=== PATIENT | female | born 1990 | race Caucasian/White ===

== ENCOUNTER 2016-11-27 13:42 | Emergency (ER) | payer OTHER ==
[~2016-11-27] VITALS: Ht 154.9 cm; Wt 92.0 kg
[~2016-11-27 13:42] MED LIST: AZIT250T94 PO; BENA1TAB14 PO; IBUP-1542 PO; PROM6.25 PO
[2016-11-27 13:44] VITALS: Ht 154.9 cm; Wt 92.0 kg
[2016-11-27] MEDS ORDERED: SOD CHLORIDE 0.9% 1,000 ML IV STA ×2 (14:13→16:59)
[2016-11-27] MEDS ORDERED: ONDANSETRON 4 MG INJ IV STA (14:13)
[2016-11-27] MEDS ORDERED: morphine 4 MG/ML VIAL IV STA (14:13)
[2016-11-27] MEDS ORDERED: FAMOTIDINE 20 MG INJ IV STA (14:13)
[2016-11-27] MEDS ORDERED: LISI1TAB8 PO (14:32)
[2016-11-27] MEDS ORDERED: ALBU18HF INHALATION (14:32)
[2016-11-27 14:55] LABS: BASOPHILS % 0.1 % (0.0-2.0); EOSINOPHILS # 0.1 10^3/ul (0.0-0.5); EOSINOPHILS % 1.7 % (0.0-7.0); HEMATOCRIT 37.4 % (37.0-47.0); HEMOGLOBIN 11.9 g/dl (12.0-16.0); LYMPHOCYTES # 1.9 10^3/ul (0.8-2.9); LYMPHOCYTES % 26.7 % (15.0-51.0); MEAN CORPUSCULAR HEMOGLOBIN 23.7 pg (29.0-33.0); MEAN CORPUSCULAR HGB CONC 31.8 g/dl (32.0-37.0); MEAN CORPUSCULAR VOLUME 74.4 fl (82.0-101.0); MONOCYTE # 0.4 10^3/ul (0.3-0.9); MONOCYTES % 5.8 % (0.0-11.0); NEUTROPHIL # 4.6 10^3/ul (1.6-7.5); NEUTROPHILS % 65.4 % (39.0-77.0); PLATELET COUNT 356 10^3/UL (140-415); RED BLOOD COUNT 5.03 10^6/ul (4.20-5.40); RED CELL DISTRIBUTION WIDTH 15.3 % (11.5-14.5)
[2016-11-27 15:09] LABS: ADD UMIC YES; UR ASCORBIC ACID NEGATIVE (NEGATIVE); UR BILIRUBIN (Dip) 1+ mg/dL (NEGATIVE); UR BLOOD (Dip) 1+ mg/dL (NEGATIVE); UR CLARITY CLOUDY (CLEAR); UR COLOR AMBER (YELLOW); UR GLUCOSE (Dip) NEGATIVE (NEGATIVE); UR KETONES (Dip) TRACE mg/dL (NEGATIVE); UR LEUKOCYTE ESTERASE (Dip) NEGATIVE Leu/ul (NEGATIVE); UR MUCUS MANY /HPF (NONE SEEN); UR NITRITE (Dip) NEGATIVE (NEGATIVE); UR RBC 8 /HPF (0-5); UR SPECIFIC GRAVITY (Dip) 1.041 (1.003-1.030); UR SQUAMOUS EPITHELIAL CELL FEW /HPF (FEW); UR TOTAL PROTEIN (Dip) 1+ mg/dl (NEGATIVE); UR UROBILINOGEN (Dip) 1+ mg/dL (NEGATIVE)
[2016-11-27 15:19] LABS: ALANINE AMINOTRANSFERASE 27 IU/L (13-69); ALBUMIN 4.6 g/dl (3.3-4.9); ALBUMIN/GLOBULIN RATIO 1.48; ALKALINE PHOSPHATASE 127 IU/L (42-121); ANION GAP 15 (8-16); ASPARTATE AMINO TRANSFERASE 21 IU/L (15-46); BLOOD UREA NITROGEN 17 mg/dl (7-20); CALCIUM 9.3 mg/dl (8.4-10.2); CARBON DIOXIDE 25 mmol/L (21-31); CHLORIDE 105 mmol/L (97-110); CREATININE 0.69 mg/dl (0.44-1.00); GLUCOSE 136 mg/dl (70-220); POTASSIUM 3.5 mmol/L (3.5-5.1); SODIUM 141 mmol/L (135-144); TOTAL PROTEIN 7.7 g/dl (6.1-8.1)
[2016-11-27 15:20] LABS: INR 0.99; PROTIME 13.1 Sec (12.2-14.2)
[2016-11-27 15:21] LABS: PARTIAL THROMBOPLASTIN TIME 27.6 Sec (25.0-35.0)
[2016-11-27] MEDS ORDERED: HYDROmorphONE 1 MG/ML SYG IV STA ×2 (15:27→15:54)
[2016-11-27] MEDS ORDERED: hydrALAzine 20 MG INJ IV ONE (15:30)
[2016-11-27 15:31] LABS: TROPONIN-I < 0.012 ng/ml (0.00-0.12)
--- NOTE | 2016-11-27 15:35 | RADRPT ---
PROCEDURE: XR Lumbar Spine. CLINICAL INDICATION: Trauma due to a fall. Back pain. TECHNIQUE: Three views. AP, lateral and cone-down lateral view of the lumbar spine were obtained. COMPARISON: No prior studies are available for comparison. FINDINGS: There is normal stature and alignment of the vertebrae. There is no fracture. There is no lytic or blastic lesion. The disk height is normal. Surgical clips are present in the right upper quadrant of the abdomen. The paravertebral soft tissu es are otherwise unremarkable. IMPRESSION: 1. Prior right upper quadrant abdomen surgery. 2. Otherwise unremarkable images of the lumbar spine. RPTAT: QQ .Zaid Singleton MD, MD Date Time Electronically viewed and signed by .Zaid Singleton MD, on 11/27/2016 15:35 .R/
[2016-11-27] MEDS ORDERED: IOHEXOL 100 ML ONE (15:47)
[2016-11-27] MEDS ORDERED: SOD CHLORIDE 0.9% 100 ML ONE (15:48)
[2016-11-27] MEDS ORDERED: IOHEXOL 350MG/ML 50 ML BTL ONE (15:49)
--- NOTE | 2016-11-27 16:53 | RADRPT ---
PROCEDURE: CT angiogram chest, abdomen, and pelvis. CLINICAL INDICATION: Chest pain. Concern for dissection. TECHNIQUE: CT angiogram of the thoracic and abdominal aorta was acquired in the early angiographic phase after the uneventful administration of 100 ml Omnipaque 350. One or more of the following do se reduction techniques were used: Automated exposure control, adjustment of the mA and/or kV accor ding to patient size, use of iterative reconstruction technique. The total exam CTDI = 2.8, 28.2, 2 0.1 mGy and the DLP equals 1376.75 mGy-cm. COMPARISON: None available FINDINGS: Vascular: Pulmonary arteries: No filling defect is seen within the pulmonary arteries to suggest pulmonary emb olism. Thoracic aorta: Evaluation of the aortic root is limited secondary to cardiac motion artifact. Connor ssly, there is no evidence of dissection or aneurysm. Abdominal aorta: Normal in caliber. No evidence of dissection. The celiac, superior mesenteric, inferior mesenteric arteries: Patent without stenosis. Renal arteries: Widely patent renal arteries bilaterally. Two accessory left renal arteries are not ed. Incidentally noted, there is a retroaortic left renal vein. Large collateral seen: None. Chest: The lungs are clear. No focal opacification, effusion, pneumothorax, edema, or nodules are seen. M inimal scarring only is seen in the lung bases bilaterally. There is no acute infiltrate. The medi astinum is unremarkable without evidence for mass or lymphadenopathy. The heart size is normal wi thout evidence for pericardial thickening or effusion. The axillary regions, subpectoral regions, and supraclavicular regions are all unremarkable. Imagin g obtained through the upper abdomen reveals no acute abnormality. The surrounding osseous structur es are unremarkable. No osteolytic or osteoblastic lesion is detected. Abdomen: Liver is normal in size and attenuation without focal lesion on this angiographic phase. Spleen is normal in size. The gallbladder surgically absent. There is likely compensatory mild prominence of the common bile duct. Pancreas and adrenal glands are unremarkable. Kidneys show cortical medullary differentiation. Ther e is no hydronephrosis. No calculi are seen. There is a moderate fluid-filled distension of the stomach. Otherwise, there is no dilated bowel. The appendix is normal. There is no fluid or thickening of the small bowel mesentery. No retroperi toneal mass or lymphadenopathy. The amor hepatis region is clear. No fluid collection is identifie d. A small posterior disk osteophyte complex is present at T12-L1 without significant central canal stenosis. Pelvis: Pelvic organs are unremarkable. The pelvic sidewalls and inguinal regions are clear. No free fluid is seen. IMPRESSION: 1. Unremarkable aorta without evidence of dissection or aneurysm. 2. No evidence of pulmonary artery filling defect to suggest pulmonary embolism. 3. Status post cholecystectomy with likely compensatory prominence of the CBD. 4. Moderately distended fluid-filled stomach. RPTAT: JJ .Socrates Carlton MD, MD Date Time Electronically viewed and signed by .Socrates Carlton MD, MD on 11/27/2016 16:52 .A/
[2016-11-27] MEDS ORDERED: DIAZEPAM 5 MG/ML SYG IV ONE (17:00)
[2016-11-27] MEDS ORDERED: METOCLOPRAMIDE 10 MG INJ IV ONE (17:00)
[2016-11-27] MEDS ORDERED: CEFTRIAXONE 1 GM/50 ML (PMX) 50 ML IVPB ONE (17:00)
--- NOTE | 2016-11-27 17:39 | ERD ---
ER Documentation Chief Complaint Date/Time DATE: 11/27/16 TIME: 17:35 Chief Complaint Complains of severe back pain after a fall HPI This is a 26-year-old female who presents to the emergency room for evaluation of lower back pain. The patient does state that approximately 3 days ago she was in the shower she slipped and fell backwards and hit her back. She denies any head injury or loss of consciousness. The patient states that she went to to other hospitals" they did not do anything for her ankle. She states that she came to the emergency room today for evaluation. The patient denies having received any type of imaging studies at either hospital. She denies any fevers associated with this and does state that she has mild painful urination ROS All systems reviewed and are negative except as per history of present illness. Medications Home Meds Reported Medications Albuterol Sulfate* (Ventolin HFA*) 18 Gm Hfa.aer.ad, 2 PUFF INHALATION Q6H, #1 INHALER 11/27/16 Lisinopril/Hydrochlorothiazide (Lisinopril-Hctz 20-25 mg Tab) 1 Each Tablet, 1 EACH PO DAILY, TAB 11/27/16 Discontinued Scripts Benazepril-Hydrochlorothiazide (Benazepril-Hydrochlorothiazide) 20-25 Mg Tablet , 1 TAB PO DAILY, #30 TAB Prov:MEY LOPEZ MD 07/25/15 Ibuprofen* (Motrin*) 600 Mg Tab, 600 MG PO Q6H Y for PAIN, #14 TAB Prov:MEY LOPEZ MD 07/25/15 Promethazine w/Codeine* (Phenergan w/Codeine* Syrup) 5 Ml Syrup, 5 ML PO Q4H Y for COUGH for 5 Days, ML Prov:MEY LOPEZ MD 07/25/15 Azithromycin* (Zithromax*) 250 Mg Tablet, 250 MG PO .MistyPACK DIRECTED, #6 TAB TAKE 500 MG (2 TABS) THE FIRST DAY THEN 250 MG (1 TAB) DAYS 2-5 Prov:MEY LOPEZ MD 07/25/15 Allergies Allergies: Coded Allergies: No Known Allergy (Verified , NONE, 11/27/16) PMhx/Soc History of Surgery: Yes ( x 3) Anesthesia Reaction: No Hx Neurological Disorder: No Hx Respiratory Disorders: Yes (ASTHMA) Hx Cardiac Disorders: Yes (HTN) Hx Psychiatric Problems: No Hx Miscellaneous Medical Probl: Yes (Overian cysts) Hx Alcohol Use: No Hx Substance Use: No Hx Tobacco Use: No Smoking Status: Never smoker Physical Exam Vitals Vital Signs Date Time Temp Pulse Resp B/P Pulse Ox O2 Delivery O2 Flow Rate FiO2 11/27/16 15:51 100 20 154/104 100 Room Air 11/27/16 13:44 98.3 92 20 232/128 97 Physical Exam INITIAL VITAL SIGNS: Reviewed by me GENERAL: The patient is well developed and appropriate for usual state of health in no apparent distress HEENT: Pupils equal, round, and reactive to light. EOMI. There is no scleral icterus. NECK: C-spine is soft and supple, there is no meningismus. There is no cervical lymphadenopathy. LUNGS: Clear to auscultation bilaterally. There are no rales, wheezes or rhonchi. HEART: Regular rate and rhythm, no murmurs, clicks, rubs or gallops. ABDOMEN: Bilateral CVAT, there soft, non-tender, non-distended. There are bowel sounds in all four quadrants. No rebound or guarding. EXTREMITIES: There is no peripheral cyanosis or edema. No focal swelling or erythema. NEUROLOGICAL: The patient moves all four extremities with 5/5 strength. Cranial nerves II - XII are intact. Normal gait. Alert and oriented SKIN: There is no apparent rash or petechiae. HEME/LYMPHATIC: There is no evidence of excessive bruising or lymphedema. PSYCHIATRIC: The patient does not appear anxious or depressed. Result Diagram: 11/27/16 1440 11/27/16 1440 Results 24 hrs Laboratory Tests Test 11/27/16 14:40 White Blood Count 7.010^3/ul Red Blood Count 5.0310^6/ul Hemoglobin 11.9g/dl Hematocrit 37.4% Mean Corpuscular Volume 74.4fl Mean Corpuscular Hemoglobin 23.7pg Mean Corpuscular Hemoglobin Concent 31.8g/dl Red Cell Distribution Width 15.3% Platelet Count 45305^3/UL Mean Platelet Volume 10.0fl Neutrophils % 65.4% Lymphocytes % 26.7% Monocytes % 5.8% Eosinophils % 1.7% Basophils % 0.1% Nucleated Red Blood Cells % 0.0/100WBC Neutrophils # 4.610^3/ul Lymphocytes # 1.910^3/ul Monocytes # 0.410^3/ul Eosinophils # 0.110^3/ul Basophils # 0.010^3/ul Nucleated Red Blood Cells # 0.010^3/ul Prothrombin Time 13.1Sec Prothrombin Time Ratio 1.0 INR International Normalized Ratio 0.99 Activated Partial Thromboplast Time 27.6Sec Urine Color SAMIR Urine Clarity CLOUDY Urine pH 5.0 Urine Specific [place] 1.041 Urine Ketones TRACEmg/dL Urine Nitrite NEGATIVEmg/dL Urine Bilirubin 1+mg/dL Urine Urobilinogen 1+mg/dL Urine Leukocyte Esterase NEGATIVELeu/ul Urine Microscopic RBC 8/HPF Urine Microscopic WBC 3/HPF Urine Squamous Epithelial Cells FEW/HPF Urine Calcium Oxalate Crystals MANY/HPF Urine Mucus MANY/HPF Urine Hemoglobin 1+mg/dL Urine Glucose NEGATIVEmg/dL Urine Total Protein 1+mg/dl Urine Test NEGATIVE Sodium Level 141mmol/L Potassium Level 3.5mmol/L Chloride Level 105mmol/L Carbon Dioxide Level 25mmol/L Anion Gap 15 Blood Urea Nitrogen 17mg/dl Creatinine 0.69mg/dl Glucose Level 136mg/dl Calcium Level 9.3mg/dl Total Bilirubin 0.0mg/dl Direct Bilirubin 0.00mg/dl Indirect Bilirubin 0.0mg/dl Aspartate Amino Transf (AST/SGOT) 21IU/L Alanine Aminotransferase (ALT/SGPT) 27IU/L Alkaline Phosphatase 127IU/L Troponin I < 0.012ng/ml Total Protein 7.7g/dl Albumin 4.6g/dl Globulin 3.10g/dl Albumin/Globulin Ratio 1.48 Lipase 50U/L Current Medications Medications (Trade) Dose Ordered Sig/Regla Route PRN Reason Start Time Stop Time Status Last Admin Dose Admin Sodium Chloride (NS) 1,000 ml @ 1,000 mls/hr Q1H STAT IV 11/27/16 14:13 11/27/16 15:22 DC 11/27/16 14:51 Morphine Sulfate (morphine) 4 mg ONCE STAT IV 11/27/16 14:13 11/27/16 14:16 DC 11/27/16 14:51 Ondansetron HCl (Zofran Inj) 4 mg ONCE STAT IV 11/27/16 14:13 11/27/16 14:16 DC 11/27/16 14:51 Famotidine (Pepcid Iv) 20 mg ONCE STAT IV 11/27/16 14:13 11/27/16 14:16 DC 11/27/16 14:51 Hydralazine HCl (Apresoline) 10 mg ONCE ONCE IV 11/27/16 15:30 11/27/16 15:32 DC 11/27/16 15:34 Hydromorphone HCl (Dilaudid) 0.5 mg ONCE STAT IV 11/27/16 15:27 11/27/16 15:28 DC 11/27/16 15:35 IV Flush 10 ml 10 ml STK-MED ONCE .ROUTE 11/27/16 15:47 11/27/16 15:48 DC 11/27/16 16:17 Iohexol 100 ml @ ud STK-MED ONCE .ROUTE 11/27/16 15:47 11/27/16 15:48 DC 11/27/16 16:17 Sodium Chloride (NS) 100 ml @ ud STK-MED ONCE .ROUTE 11/27/16 15:48 11/27/16 15:49 DC 11/27/16 16:17 Iohexol (Omnipaque 350mg/ ml) 50 ml STK-MED ONCE .ROUTE 11/27/16 15:49 11/27/16 15:50 DC 11/27/16 16:17 Hydromorphone HCl (Dilaudid) 1 mg ONCE STAT IV 11/27/16 15:54 11/27/16 15:55 DC 11/27/16 15:58 Metoclopramide HCl (Reglan) 10 mg ONCE ONCE IV 11/27/16 17:00 11/27/16 17:03 DC 11/27/16 17:11 Diazepam 5 mg 5 mg ONCE ONCE IV 11/27/16 17:00 11/27/16 17:03 DC 11/27/16 17:11 Sodium Chloride 1,000 ml @ 1,000 mls/hr Q1H STAT IV 11/27/16 16:59 11/27/16 17:58 11/27/16 17:11 Ceftriaxone Sodium (Rocephin) 50 ml @ 100 mls/hr ONCE ONCE IVPB 11/27/16 17:00 11/27/16 17:29 DC 11/27/16 17:11 Procedures/MDM EKG: Rate/Rhythm: [Normal Sinus Rhythm] QRS, ST, T-waves: [No changes consistent w/ acute ischemia] Impression: [No evidence of ischemia or arrhythmia] X-ray LS-Spine 3V Interpreted by me: Bones: [No fracture] Joints: [No dislocation] Foreign body: [None] CTA chest abdomen pelvis: 1. Unremarkable aorta without evidence of dissection or aneurysm. 2. No evidence of pulmonary artery filling defect to suggest pulmonary embolism. 3. Status post cholecystectomy with likely compensatory prominence of the CBD. 4. Moderately distended fluid-filled stomach. This 26-year-old female presents to the emergency room for lower back pain. When I evaluated her the patient did have bilateral CVAT. Lab work was obtained which is within normal limits. The patient's urine does show small amount of blood. Urine culture was obtained. Of concern was suspicious blood pressure of 232/1 58. I did give this patient hydralazine with moderate reduction in her blood pressure. She is complaining of severe back pain was given morphine without resolution of pain. She was then given Dilaudid without resolution of pain. CTA of the chest abdomen pelvis was obtained to rule out any aortic dissection. CTA of the chest abdomen pelvis does not reveal any acute intra-abdominal pathology. This patient was then given Valium. The patient did have resolution of her pain and is sleeping comfortably at this time. This patient will be discharged home at this time with a prescription for Valium, and I feel the likely cause of her back pain is secondary to lower back contusion from the fall. The patient was advised to follow with her primary care physician for evaluation of hypertension as well. Departure Diagnosis: Primary Impression: Contusion of lower back Additional Impression: Uncontrolled hypertension Condition: Stable MAUBennyKAMRON THURMAN Nov 27, 2016 17:39
[2016-11-27] MEDS ORDERED: IBUP800T25 PO (17:40)
[2016-11-27] MEDS ORDERED: DIAZ-90 PO (17:40)
[2016-11-27 18:07] VITALS: BP 168/105; PULSE 98; RESP 16; TEMP 98
--- NOTE | 2016-11-28 12:53 | RADRPT ---
PROCEDURE: CT angiogram chest, abdomen, and pelvis. CLINICAL INDICATION: Chest pain. Concern for dissection. TECHNIQUE: CT angiogram of the thoracic and abdominal aorta was acquired in the early angiographic p hase after the uneventful administration of 100 ml Omnipaque 350. One or more of the following dose reduction techniques were used: Automated exposure control, adjustment of the mA and/or kV according to patient size, use of iterative reconstruction technique. The total exam CTDI = 2.8, 28.2, 20.1 m Gy and the DLP equals 1376.75 mGy-cm. COMPARISON: None available FINDINGS: Vascular: Pulmonary arteries: No filling defect is seen within the pulmonary arteries to suggest pulmonary emb olism. Thoracic aorta: Evaluation of the aortic root is limited secondary to cardiac motion artifact. Gross ly, there is no evidence of dissection or aneurysm. Abdominal aorta: Normal in caliber. No evidence of dissection. The celiac, superior mesenteric, inferior mesenteric arteries: Patent without stenosis. Renal arteries: Widely patent renal arteries bilaterally. Two accessory left renal arteries are note d. Incidentally noted, there is a retroaortic left renal vein. Large collateral seen: None. Chest: The lungs are clear. No focal opacification, effusion, pneumothorax, edema, or nodules are seen. Min imal scarring only is seen in the lung bases bilaterally. There is no acute infiltrate. The mediasti num is unremarkable without evidence for mass or lymphadenopathy. The heart size is normal without e vidence for pericardial thickening or effusion. The axillary regions, subpectoral regions, and supraclavicular regions are all unremarkable. Imaging obtained through the upper abdomen reveals no acute abnormality. The surrounding osseous structures are unremarkable. No osteolytic or osteoblastic lesion is detected. Abdomen: Liver is normal in size and attenuation without focal lesion on this angiographic phase. Spleen is n ormal in size. The gallbladder surgically absent. There is likely compensatory mild prominence of th e common bile duct. Pancreas and adrenal glands are unremarkable. Kidneys show cortical medullary differentiation. There is no hydronephrosis. No calculi are seen. There is a moderate fluid-filled distension of the stomach. Otherwise, there is no dilated bowel. Th e appendix is normal. There is no fluid or thickening of the small bowel mesentery. No retroperitone al mass or lymphadenopathy. The amor hepatis region is clear. No fluid collection is identified. A small posterior disk osteophyte complex is present at T12-L1 without significant central canal steno sis. Pelvis: Pelvic organs are unremarkable. The pelvic sidewalls and inguinal regions are clear. No free fluid i s seen. IMPRESSION: 1. Unremarkable aorta without evidence of dissection or aneurysm. 2. No evidence of pulmonary artery filling defect to suggest pulmonary embolism. 3. Status post cholecystectomy with likely compensatory prominence of the CBD. 4. Moderately distended fluid-filled stomach. RPTAT: JJ .Socrates Carlton MD, MD Date Time Electronically viewed and signed by .Socrates Carlton MD, MD on 11/28/2016 12:53 .A/
== END 2016-11-27 18:10 | disposition home or self-care (01) ==
LOC: E/R 13:42
DX: S30.0XXA Contusion of lower back and pelvis, initial encounter (principal); I10 Essential (primary) hypertension; J45.909 Unspecified asthma, uncomplicated; W01.10XA Fall on same level from slipping, tripping and stumbling with subsequent striking against unspecified object, initial encounter; Y92.9 Unspecified place or not applicable
CPT/HCPCS: 71275; 72100; 75635; 80053; 81001; 83690; 84484; 84703; 85025; 85610; 85730; J0360; J0696; J1170; J2270; J2405; J2765; J3360; J7030; Q9967; Z7610; 36415; 96374; 96375

== ENCOUNTER 2016-11-27 18:26 | Emergency (ER) | payer OTHER ==
[~2016-11-27] VITALS: Ht 160 cm; Wt 92.5 kg
[~2016-11-27 18:26] MED LIST changes: +ALBU18HF INHALATION; +DIAZ-90 PO; +IBUP800T25 PO; +LISI1TAB8 PO
[2016-11-27 18:32] VITALS: Ht 160 cm; Wt 92.5 kg
--- NOTE | 2016-11-27 19:14 | ERD ---
ER Documentation Chief Complaint Date/Time DATE: 11/27/16 TIME: 19:11 Chief Complaint syncopal episode x 1 minute, was just dcd here for htn and back contussion HPI Patient is a 26-year-old female with asthma and hypertension who presents with syncope. She was just discharged and walk to the restroom and then passed out. She felt like she was going to vomit prior. She said that it was approximately 1 minute. She was already seen today for back pain and had a full workup including laboratory studies and CTA scan of the chest, abdomen, and pelvis. The patient will be given multiple doses of narcotics as well as Valium prior to discharge earlier. Upon review of old medical records this is the patient's eighth visit to the ER since 2010. Review of the emergency department information exchange system shows visits to 3 separate emergency departments. ROS All systems reviewed and are negative except as per history of present illness. Medications Home Meds Active Scripts Ibuprofen* (Ibuprofen*) 800 Mg Tablet, 800 MG PO Q8 for 7 Days, TAB Prov:KAMRON KRUEGER DO 11/27/16 Diazepam* (Valium*) 5 Mg Tablet, 5 MG PO Q8 for MUSCLE SPASMS, #10 TAB Prov:KAMRON KRUEGER DO 11/27/16 Reported Medications Albuterol Sulfate* (Ventolin HFA*) 18 Gm Hfa.aer.ad, 2 PUFF INHALATION Q6H, #1 INHALER 11/27/16 Lisinopril/Hydrochlorothiazide (Lisinopril-Hctz 20-25 mg Tab) 1 Each Tablet, 1 EACH PO DAILY, TAB 11/27/16 Discontinued Scripts Benazepril-Hydrochlorothiazide (Benazepril-Hydrochlorothiazide) 20-25 Mg Tablet , 1 TAB PO DAILY, #30 TAB Prov:MEY LOPEZ MD 07/25/15 Ibuprofen* (Motrin*) 600 Mg Tab, 600 MG PO Q6H Y for PAIN, #14 TAB Prov:MEY LOPEZ MD 07/25/15 Promethazine w/Codeine* (Phenergan w/Codeine* Syrup) 5 Ml Syrup, 5 ML PO Q4H Y for COUGH for 5 Days, ML Prov:MEY LOPEZ MD 07/25/15 Azithromycin* (Zithromax*) 250 Mg Tablet, 250 MG PO .ZPACK DIRECTED, #6 TAB TAKE 500 MG (2 TABS) THE FIRST DAY THEN 250 MG (1 TAB) DAYS 2-5 Prov:MEY LOPEZ MD 07/25/15 Allergies Allergies: Coded Allergies: No Known Allergy (Verified , NONE, 11/27/16) PMhx/Soc History of Surgery: Yes ( x 3) Anesthesia Reaction: No Hx Neurological Disorder: No Hx Respiratory Disorders: Yes (ASTHMA) Hx Cardiac Disorders: Yes (HTN) Hx Psychiatric Problems: No Hx Miscellaneous Medical Probl: Yes (Overian cysts) Hx Alcohol Use: No Hx Substance Use: No Hx Tobacco Use: No Smoking Status: Never smoker FmHx Family History: diabetes Physical Exam Vitals Vital Signs Date Time Temp Pulse Resp B/P Pulse Ox O2 Delivery O2 Flow Rate FiO2 11/27/16 18:32 98.9 100 20 201/126 98 Physical Exam Const: No acute distress Head: Atraumatic Eyes: Normal Conjunctiva ENT: Normal External Ears, Nose and Mouth. Neck: Full range of motion..~ No meningismus. Resp: Clear to auscultation bilaterally Cardio: Regular rate and rhythm, no murmurs Abd: Soft, non tender, non distended. Normal bowel sounds Skin: No petechiae or rashes Back: No midline or flank tenderness Ext: No cyanosis, or edema Neur: Awake and alert, no slurred speech, cranial nerves II through XII intact, upper and lower extremities equal strength bilaterally Psych: Depressed affect Results 24 hrs Laboratory Tests Test 11/27/16 18:51 Bedside Glucose 156mg/dL [facility] EKG read by me: Rate/Rhythm: Regular rate and rhythm at a rate of 92 Intervals: Slightly prolonged QTC of 504 Impression: Sinus rhythm with mildly prolonged QTC Accu-Chek is normal Patient is a 26-year-old female with hypertension and asthma who presents with syncope. I believe the syncope was related to her multiple doses of narcotics and benzodiazepine medications while in the emergency department today. She had a full workup including laboratory studies, CTA of the chest, abdomen, and pelvis which were negative. Her QTC is slightly prolonged at 504 but I do not believe that this is the cause of her syncope and I doubt ventricular fibrillation or ventricular tachycardia. I believe outpatient management is appropriate but the patient will need close follow-up with her primary doctor at the clinic within 24-48 hours for reevaluation. She can return sooner for any worsening symptoms. Departure Diagnosis: Primary Impression: Syncope Syncope type: unspecified Qualified Code: R55 - Syncope, unspecified syncope type Condition: Fair Patient Instructions: Syncope, Unk Cause Referrals: Your doctor Additional Instructions: Call your primary care doctor TOMORROW for an appointment during the next 1-2 days.See the doctor sooner or return here if your condition worsens before your appointment time. VICTOR M BRADLEY MD Nov 27, 2016 19:14
[2016-11-27 19:19] VITALS: BP 180/107; PULSE 93; RESP 16
== END 2016-11-27 19:34 | disposition home or self-care (01) ==
LOC: E/R 18:26
DX: R55 Syncope and collapse (principal); I10 Essential (primary) hypertension; J45.909 Unspecified asthma, uncomplicated
CPT/HCPCS: 82962; 93005; Z7502

== ENCOUNTER 2017-12-30 08:12 | Emergency (ER) | END 2017-12-30 11:40 | disposition left against medical advice (07) ==

== ENCOUNTER 2018-06-15 10:10 | Emergency (ER) | payer OTHER ==
[~2018-06-15] VITALS: Ht 154.9 cm; Wt 84.7 kg
[~2018-06-15 10:10] MED LIST changes: -AZIT250T94 PO; -BENA1TAB14 PO; -DIAZ-90 PO; -IBUP-1542 PO; -IBUP800T25 PO; +LABE100T7 PO; -LISI1TAB8 PO; -PROM6.25 PO
[2018-06-15 10:34] VITALS: Ht 154.9 cm; Wt 84.7 kg
--- NOTE | 2018-06-15 13:35 | ERD ---
ER Documentation Chief Complaint Chief Complaint HEADACHE X3 DAYS HPI The patient is a 28-year-old female, presenting to the ER because of headache at the top of the head intermittently for the last couple days due to high blood pressure. She is currently taking Lopressor 100 mg a day, hydrochlorothiazide 25 mg a day, Norvasc 5 mg a day. She claims that she is compliant with her medication, denies syncope, near syncope, dizziness, neck pain, chest pain,, abdominal pain, vomiting, dysuria, diarrhea. She does not smoke nor drink Past medical history: Asthma, hypertension Surgical history: Cholecystectomy, ROS All systems reviewed and are negative except as per history of present illness. Medications Home Meds Active Scripts Acetaminophen* (Acetaminophen*) 650 Mg Tablet, 650 MG PO Q6H PRN for PAIN AND OR ELEVATED TEMP, #30 TAB Prov:OSMAN DIAS MD 06/15/18 Reported Medications Acetaminophen* (Acetaminophen*) 325 Mg Tablet, 325 MG PO Q8 PRN for PAIN AND OR ELEVATED TEMP, #30 TAB 06/15/18 Amlodipine Besylate* (Norvasc*) 5 Mg Tablet, 5 MG PO DAILY, TAB 06/15/18 Hydrochlorothiazide* (Hydrochlorothiazide*) 25 Mg Tab, 25 MG PO DAILY, #30 TAB 06/15/18 Metoprolol Succinate* (Toprol XL*) 100 Mg Tab.sr.24h, 100 MG PO DAILY, #30 TAB 06/15/18 Albuterol Sulfate* (Ventolin HFA*) 18 Gm Hfa.aer.ad, 2 PUFF INHALATION Q4H, #1 INHALER 12/30/17 Discontinued Scripts Labetalol Hcl* (Labetalol Hcl*) 100 Mg Tablet, 100 MG PO BID, #30 TAB Prov:KEVIN DUNN MD 12/30/17 Allergies Allergies: Coded Allergies: No Known Allergy (Verified , NONE, 06/15/18) PMhx/Soc History of Surgery: Yes ( x 3) Anesthesia Reaction: No Hx Neurological Disorder: No Hx Respiratory Disorders: Yes (ASTHMA) Hx Cardiac Disorders: Yes (HTN) Hx Psychiatric Problems: No Hx Miscellaneous Medical Probl: Yes (Overian cysts) Hx Alcohol Use: No Hx Substance Use: No Hx Tobacco Use: No Physical Exam Vitals Vital Signs Date Temp Pulse Resp B/P (MAP) Pulse Ox O2 O2 Flow FiO2 Time Delivery Rate 06/15/18 98.7 77 14 140/51 100 Room Air 15:24 (80) 06/15/18 81 17 147/49 100 Room Air 15:06 (81) 06/15/18 212/110 11:45 (144) 06/15/18 99.3 73 16 197/122 100 10:34 (147) Physical Exam Const: No acute distress. Head: Atraumatic. Eyes: Normal Conjunctiva. ENT: Normal External Ears, Nose and Mouth. Neck: Full range of motion. No meningismus. Resp: Clear to auscultation bilaterally. Cardio: Regular rate and rhythm. Abd: Soft, non distended, normal bowel sounds, non tender. Skin: No petechiae or rashes. Back: No midline or flank tenderness. Ext: No cyanosis, or edema. Neur: Awake and alert. No focal deficit Psych: Normal Mood and Affect. Results 24 hrs Current Medications Medications Dose Sig/Regla Start Time Status Last (Trade) Ordered Route PRN Stop Time Admin Dose Reason Admin 650 mg ONCE ONCE 06/15/18 DC 06/15/18 Acetaminophen PO 15:00 15:05 (Tylenol 06/15/18 15:01 Tab) Procedures/[place] [address] Radiology Main Line: [phone] DIAGNOSTIC IMAGING REPORT Patient: LAVELL TELLO : 1990 Age: 28 Sex: F MR #: [id number] DOS: 06/15/18 1344 Ordering MD: OSMAN DIAS MD Location: E/R Room/Bed: PROCEDURE: CT Brain without contrast. CLINICAL INDICATION: Headache. TECHNIQUE: A CT of the brain without contrast was performed utilizing axial sections from the skull base through the vertex. One or more the following does reduction techniques were utilized: Automated exposure control, adjustment of the mA/ or kV according to patient's size, or use of iterative reconstruction technique. Total exam CTDIvol is 38.38 MGy and DLP is 554.95 mGy-cm. DICOM images are available. COMPARISON: None available. FINDINGS: The ventricles and sulci are age-appropriate. There is no intracranial hemorrhage, mass effect or midline shift. No abnormal intra-axial or extra- axial fluid collections are seen. The perla/white matter differentiation is preserved. No acute skull abnormality is noted. The visualized paranasal sinuses are essentially clear. IMPRESSION: 1. No acute intracranial hemorrhage, transcortical infarction or mass effect. RPTAT: HFN .Courtney Cedeno MD, MD Date Time Electronically viewed and signed by .Courtney Cedeno MD, MD on 06/15/2018 14:08 .N/ CC: OSMAN DIAS MD [id number] MEDICAL MAKING DECISION: The patient is a 28-year-old male, presenting with acute headache due to acute accelerated hypertension, she was treated with Tylenol for headache, her blood pressure improved and her symptoms improved The differential diagnoses considered include but are not limited to subarachnoid hemorrhage, occult trauma, CVA, meningitis, encephalitis, hypertension, tension, migraine, cluster, narcotic withdrawal, cervical spine disease. Departure Diagnosis: Primary Impression: Accelerated hypertension Condition: Good Comments She was discharged with Tylenol and I discussed the findings with the patient. I advised the patient to follow-up with the primary physician in about 2-3 days, sooner if needed and return if any concern. Disclaimer: Inadvertent spelling and grammatical errors are likely due to E HR/dictation software use and do not reflect on the overall quality of patient care. Also, please note that the electronic time recorded on this note does not necessarily reflect the actual time of the patient encounter. OSMAN DIAS MD Jun 15, 2018 13:34
[2018-06-15] MEDS ORDERED: METO-336 PO (13:39)
[2018-06-15] MEDS ORDERED: HYDR25TA6 PO (13:39)
[2018-06-15] MEDS ORDERED: AMLO5TAB4 PO (13:40)
[2018-06-15] MEDS ORDERED: ACET325T45 PO (13:40)
[2018-06-15] MEDS ORDERED: ACETAMINOPHEN 325 MG TAB PO ONE (15:00)
[2018-06-15] MEDS ORDERED: ACET-2047 PO (15:05)
[2018-06-15 15:24] VITALS: BP 140/51; PULSE 77; RESP 14
== END 2018-06-15 15:46 | disposition home or self-care (01) ==
LOC: E/R 10:10
DX: I10 Essential (primary) hypertension (principal); J45.909 Unspecified asthma, uncomplicated
CPT/HCPCS: 70450; Z7502; Z7610

== ENCOUNTER 2018-12-28 05:44 | Emergency (ER) | payer OTHER ==
[~2018-12-28] VITALS: Ht 160 cm; Wt 93.4 kg
[~2018-12-28 05:44] MED LIST changes: +ACET-2047 PO; +ACET325T45 PO; +AMLO5TAB4 PO; +HYDR25TA6 PO; -LABE100T7 PO; +METO-336 PO
[2018-12-28 05:51] VITALS: Ht 160 cm; Wt 93.4 kg
[2018-12-28] MEDS ORDERED: LABETALOL HCL 20MG INJ IV ONE (08:30)
--- NOTE | 2018-12-28 09:18 | ERD ---
ER Documentation Chief Complaint Chief Complaint VAG BLEEDING; POSS 19WKS? LMP: 08/13/18; [id number]; HBP-NOT TAKING HPI Patient is a 28-year-old female with hypertension who presents with back pain. She felt a tightness. She had vaginal bleeding. This all started at 5 AM. She thought that she might be 19 weeks she did have a positive test a few weeks ago and has had spotty periods for the past 3 to 4 months. She has had no ultrasound as of yet to confirm intrauterine or age of . Patient denies contractions. She has no fevers. She is not currently taking her blood pressure medicines. She is a G5, P2. Upon review of old medical records the patient has multiple visits for various complaints. Her OB doctor is Dr. Tenorio. ROS All systems reviewed and are negative except as per history of present illness. Medications Home Meds Active Scripts Acetaminophen* (Acetaminophen*) 650 Mg Tablet, 650 MG PO Q6H PRN for PAIN AND OR ELEVATED TEMP, #30 TAB Prov:OSMAN DISA MD 06/15/18 Reported Medications Acetaminophen* (Acetaminophen*) 325 Mg Tablet, 325 MG PO Q8 PRN for PAIN AND OR ELEVATED TEMP, #30 TAB 06/15/18 Amlodipine Besylate* (Norvasc*) 5 Mg Tablet, 5 MG PO DAILY, TAB 06/15/18 Hydrochlorothiazide* (Hydrochlorothiazide*) 25 Mg Tab, 25 MG PO DAILY, #30 TAB 06/15/18 Metoprolol Succinate* (Toprol XL*) 100 Mg Tab.sr.24h, 100 MG PO DAILY, #30 TAB 06/15/18 Albuterol Sulfate* (Ventolin HFA*) 18 Gm Hfa.aer.ad, 2 PUFF INHALATION Q4H, #1 INHALER 12/30/17 Allergies Allergies: Coded Allergies: No Known Allergy (Verified , NONE, 06/15/18) PMhx/Soc History of Surgery: Yes ( x 3) Anesthesia Reaction: No Hx Neurological Disorder: No Hx Respiratory Disorders: Yes (ASTHMA) Hx Cardiac Disorders: Yes (HTN) Hx Psychiatric Problems: No Hx Miscellaneous Medical Probl: Yes (Overian cysts) Hx Alcohol Use: No Hx Substance Use: No Hx Tobacco Use: No Smoking Status: Never smoker FmHx Family History: diabetes Physical Exam Vitals Vital Signs Date Temp Pulse Resp B/P (MAP) Pulse Ox O2 O2 Flow FiO2 Time Delivery Rate 12/28/18 98.4 86 19 219/114 98 05:51 (149) Physical Exam Const: No acute distress Head: Atraumatic Eyes: Normal Conjunctiva ENT: Normal External Ears, Nose and Mouth. Neck: Full range of motion. No meningismus. Resp: Clear to auscultation bilaterally Cardio: Regular rate and rhythm, no murmurs Abd: Soft, non tender, non distended. Normal bowel sounds Skin: No petechiae or rashes Back: No midline or flank tenderness Ext: No cyanosis, or edema Neur: Awake and alert Psych: Normal Mood and Affect Result Diagram: 12/28/18 0707 12/28/18 0707 Results 24 hrs Laboratory Tests Test 12/28/18 07:07 White Blood Count 7.5 10^3/ul Red Blood Count 5.17 10^6/ul Hemoglobin 11.8 g/dl Hematocrit 39.1 % Mean Corpuscular Volume 75.6 fl Mean Corpuscular Hemoglobin 22.8 pg Mean Corpuscular Hemoglobin Concent 30.2 g/dl Red Cell Distribution Width 15.6 % Platelet Count 336 10^3/UL Mean Platelet Volume 9.7 fl Immature Granulocytes % 0.400 % Neutrophils % 60.9 % Lymphocytes % 28.4 % Monocytes % 8.0 % Eosinophils % 1.9 % Basophils % 0.4 % Nucleated Red Blood Cells % 0.0 /100WBC Immature Granulocytes # 0.030 10^3/ul Neutrophils # 4.6 10^3/ul Lymphocytes # 2.1 10^3/ul Monocytes # 0.6 10^3/ul Eosinophils # 0.1 10^3/ul Basophils # 0.0 10^3/ul Nucleated Red Blood Cells # 0.0 10^3/ul Sodium Level 140 mmol/L Potassium Level 3.5 mmol/L Chloride Level 105 mmol/L Carbon Dioxide Level 26 mmol/L Anion Gap 9 Blood Urea Nitrogen 16 mg/dl Creatinine 0.68 mg/dl Est Glomerular Filtrat Rate mL/min > 60 mL/min Glucose Level 140 mg/dl Calcium Level 9.2 mg/dl Total Bilirubin 0.3 mg/dl Direct Bilirubin 0.00 mg/dl Indirect Bilirubin 0.3 mg/dl Aspartate Amino Transf (AST/SGOT) 21 IU/L Alanine Aminotransferase (ALT/SGPT) 19 IU/L Alkaline Phosphatase 125 IU/L Total Protein 8.3 g/dl Albumin 4.3 g/dl Globulin 4.00 g/dl Albumin/Globulin Ratio 1.07 Beta HCG, Quantitative < 2.4 mIU/ml Current Medications Medications Dose Sig/Regla Start Time Status Last (Trade) Ordered Route PRN Stop Time Admin Dose Reason Admin Labetalol 20 mg ONCE ONCE 12/28/18 DC 12/28/18 HCl IV 08:30 08:39 (Labetalol) 12/28/18 08:31 Procedures/MDM Ultrasound of the abdomen shows no intrauterine per radiology. Patient is a 28-year-old female who presents with hypertension and vaginal bleeding. She likely has essential hypertension and will need to take her blood pressure medicines at home. She was given labetalol 20 mg IV. Her quantitative hCG was negative and at this point I doubt or ectopic . Intrauterine ultrasound shows no signs of intrauterine or retained products. I doubt preeclampsia or eclampsia. There is no sign of HELLP sy ndrome. The patient will be discharged will need to follow-up closely with her OB doctor within 24 to 48 hours. She can return sooner for any worsening symptoms. Critical Care: Time: 35 minutes excluding all billable procedures. Treatments/Evaluations: Close monitoring and treatment of unstable vital signs, cardiorespiratory, and neurologic status, while maintaining tight balance of fluid, respiratory, and cardiac interventions. Departure Diagnosis: Primary Impression: Additional Impressions: Vaginal bleeding Hypertension Hypertension type: essential hypertension Qualified Codes: I10 - Essential (primary) hypertension Condition: Fair Patient Instructions: High Blood Pressure (Hypertension), Possible Miscarriage (Threatened ) Additional Instructions: SPECIALIST: YOU HAVE A MEDICAL CONDITION WHICH REQUIRES YOU TO SEE A SPECIALIST WITHIN THE NEXT 1-2 DAYS. PLEASE FOLLOW UP WITH YOUR PRIMARY PHYSICIAN FOR REFFERAL.IF YOU DO NOT HAVE A PRIMARY CARE PHYSICIAN AND/OR YOU CAN NOT AFFORD TO SEE A PHYSICIAN THE FOLLOWING RESOURCES HAVE BEEN SUPPLIED TO YOU. IT IS YOUR RESPONSIBILITY TO BE SEEN BY THE SPECIALIST VICTOR M BRADLEY MD Dec 28, 2018 09:18
[2018-12-28 09:23] VITALS: BP 200/99; PULSE 89; RESP 18
== END 2018-12-28 09:26 | disposition home or self-care (01) ==
LOC: FTE 05:44 → E/R 09:26
DX: O03.9 Complete or unspecified spontaneous abortion without complication (principal); O10.02 Pre-existing essential hypertension complicating childbirth; O99.52 Diseases of the respiratory system complicating childbirth; J45.909 Unspecified asthma, uncomplicated; R10.2 Pelvic and perineal pain; Z3A.00 Weeks of gestation of pregnancy not specified
CPT/HCPCS: 76801; 76817; 80053; 84702; 85025; 86900; 86901; Z7610; 36415; 96374

== ENCOUNTER 2019-02-16 11:05 | Emergency (ER) | payer OTHER ==
[~2019-02-16] VITALS: Ht 154.9 cm; Wt 93.9 kg
[~2019-02-16 11:05] MED LIST changes: -ACET-2047 PO; +ACET-2343 PO; +ACET500C5 PO; +CYCL5TAB PO; +METO-319 PO; +ONDA4TAB8 PO
[2019-02-16 11:08] VITALS: BP 223/119; PULSE 86; RESP 18; Ht 154.9 cm; Wt 93.9 kg
[2019-02-16] MEDS ORDERED: ONDANSETRON (ODT) 4 MG TAB ODT STA (12:56)
== END 2019-02-16 14:31 | disposition home or self-care (01) ==
LOC: FTE 11:05
DX: R11.10 Vomiting, unspecified (principal); I10 Essential (primary) hypertension; J45.909 Unspecified asthma, uncomplicated; R51 Headache
CPT/HCPCS: 36415; 70450; 80048; 81025; 85025; Z7502; Z7610